=== PATIENT | male | born 1965 | race Caucasian/White ===

== ENCOUNTER 2018-03-16 15:13 | Inpatient (IN) | payer BC, OTHER ==
[~2018-03-16] VITALS: Ht 172.7 cm; Wt 74.8 kg
[2018-03-16] MEDS ORDERED: LOPERAMIDE HCL 2 MG CAPSULE PO PRN ×2 (20:30)
[2018-03-16] MEDS ORDERED: MIRALAX 17 GM POWD.PACK PO PRN (20:30)
[2018-03-16] MEDS ORDERED: ONDANSETRON ODT 4 MG TAB.RAPDIS SL PRN (20:30)
[2018-03-16] MEDS ORDERED: THIAMINE HCL 200 MG/2 ML VIAL IM ONE (20:30)
[2018-03-16] MEDS ORDERED: BUPRENORPHINE HCL 2 MG TAB.SUBL SL PRN (20:30)
[2018-03-16] MEDS ORDERED: diphenhydrAMINE 50 MG CAPSULE PO PRN (20:30)
[2018-03-16] MEDS ORDERED: DIAZEPAM 5 MG TABLET PO PRN (20:30)
[2018-03-16] MEDS ORDERED: MAGNESIUM HYDROXIDE 30 ML LIQUID UDC PO PRN (20:30)
[2018-03-16] MEDS ORDERED: DIAZEPAM 10 MG TABLET PO PRN ×2 (20:30)
[2018-03-16] MEDS ORDERED: LORAZEPAM 2 MG/1 ML VIAL IM PRN (20:30)
[2018-03-16] MEDS ORDERED: ACETAMINOPHEN 325 MG TABLET PO PRN (20:30)
[2018-03-16] MEDS ORDERED: ONDANSETRON 4 MG/2 ML VIAL IM PRN (20:30)
[2018-03-16] MEDS ORDERED: HYDROXYZINE PAMOATE 25 MG CAPSULE PO PRN (20:30)
[2018-03-16] MEDS ORDERED: MAG HYDROX/AL HYDROX/SIMETH 30 ML LIQUID UDC PO PRN (20:30)
[2018-03-16] MEDS ORDERED: DIAZEPAM 10 MG TABLET PO SCH (21:00)
[2018-03-16] MEDS ORDERED: BUPRENORPHINE HCL 2 MG TAB.SUBL SL SCH (21:00)
[2018-03-16 21:06] LABS: *AMPHETAMINE, URINE NEGATIVE (NEGATIVE); *BARBITURATE, URINE NEGATIVE (NEGATIVE); *CANNABINOID, URINE NEGATIVE (NEGATIVE); *COCCAINE, URINE POSITIVE (NEGATIVE); *OPIATE, URINE POSITIVE (NEGATIVE); *PHENCYCLIDINE SCREEN,URINE NEGATIVE (NEGATIVE)
[2018-03-16] MEDS ORDERED: FURO40TA5 PO (21:09)
[2018-03-16] MEDS ORDERED: ASPI81TA31 PO (21:09)
[2018-03-16] MEDS ORDERED: VERA240T97 PO (21:09)
[2018-03-16] MEDS ORDERED: METF500T6 PO (21:09)
[2018-03-16] MEDS ORDERED: INDO50CA14 PO (21:09)
[2018-03-16] MEDS: IBUPROFEN 400 MG TABLET PO PRN (21:43)
[2018-03-17] VITALS: BP 143/82
[2018-03-17] MEDS ORDERED: CLON0.2T PO (01:18)
[2018-03-17] MEDS ORDERED: VALS320T2 PO (01:20)
[2018-03-17] MEDS ORDERED: ALBU6.7H INH (01:21)
[2018-03-17] MEDS ORDERED: FAMO1TAB29 PO (01:38)
[2018-03-17] MEDS ORDERED: ASPIRIN (01:38)
[2018-03-17 04:00] VITALS: BP 149/100
[2018-03-17] MEDS: IBUPROFEN 400 MG TABLET PO PRN (04:15)
[2018-03-17] MEDS: CLONIDINE HCL 0.1 MG TABLET PO PRN (04:15)
[2018-03-17] MEDS: METHOCARBAMOL 750 MG TABLET PO PRN ×2 (04:15→12:38)
[2018-03-17 04:22] LABS: EOSINOPHILS # (AUTO) 0.2 K/uL (0.0-0.7); EOSINOPHILS % (AUTO) 4.8 % (0.0-7.0); HEMATOCRIT 41.1 % (36.7-47.1); HEMOGLOBIN 13.7 g/dL (12.5-16.3); LYMPHOCYTES # (AUTO) 1.9 K/uL (20.0-40.0); LYMPHOCYTES % (AUTO) 45.2 % (20.5-51.5); MEAN CORPUSCULAR HEMOGLOBIN 29.5 uug (23.8-33.4); MEAN CORPUSCULAR HGB CONC 33 g/dL (32.5-36.3); MEAN CORPUSCULAR VOLUME 88.2 fL (73.0-96.2); MONOCYTES # (AUTO) 0.4 K/uL (2.0-10.0); MONOCYTES % (AUTO) 9.2 % (0.0-11.0); NEUTROPHILS # (AUTO) 1.6 K/uL (1.8-8.9); NEUTROPHILS % (AUTO) 39.8 % (38.5-71.5); PLATELET COUNT (AUTO) 194 K/uL (152-348); RED BLOOD CELL COUNT(AUTO) 4.66 MIL/uL (4.06-5.63); WHITE BLOOD COUNT (AUTO) 4.1 K/uL (3.6-10.2)
[2018-03-17 04:34] LABS: ALANINE AMINOTRANSFERASE 32 U/L (16-63); ALKALINE PHOSPHATASE 94 U/L (50-136); AMYLASE 122 U/L (25-115); ASPARTATE AMINOTRANSFERASE 23 U/L (15-37); BILIRUBIN,TOTAL 0.4 mg/dL (0.2-1.0); CARBON DIOXIDE 23 mmol/L (21-32); CHLORIDE 103 mmol/L (98-107); CREATININE 1.1 mg/dL (0.6-1.3); GLUCOSE 91 mg/dL (74-106); LIPASE 218 U/L (73-393); POTASSIUM 3.8 mmol/L (3.5-5.1); TOTAL PROTEIN, SERUM 7.9 g/dL (6.4-8.2); UREA NITROGEN, BLOOD 13 mg/dL (7-18)
[2018-03-17 04:42] LABS: ETHANOL < 3 MG/DL (0-0)
[2018-03-17 06:04] LABS: THYROID STIMULATING HORMONE 0.645 mIU/mL (0.358-3.740)
[2018-03-17 08:00] VITALS: BP 124/73
[2018-03-17] MEDS: MULTIVITAMINS,THERAPEUTIC TABLET PO SCH (08:50)
[2018-03-17] MEDS: FOLIC ACID 1 MG TABLET PO SCH (08:50)
[2018-03-17] MEDS: THIAMINE HCL 100 MG TABLET PO SCH (08:50)
[2018-03-17] MEDS: BUPRENORPHINE HCL 2 MG TAB.SUBL SL SCH ×4 (08:51→21:31)
[2018-03-17] MEDS: DIAZEPAM 10 MG TABLET PO SCH ×4 (08:53→21:31)
[2018-03-17] MEDS ORDERED: TUBERCULIN,PURIF.PROT.DERIV. 5 TU/0.1 ML TEST ID ONE (09:00)
[2018-03-17 12:22] VITALS: BP 129/79
[2018-03-17] MEDS: FUROSEMIDE 40 MG TABLET PO SCH (12:36)
[2018-03-17] MEDS: LOSARTAN POTASSIUM 50 MG TABLET PO SCH (12:37)
[2018-03-17] MEDS: ASPIRIN 81 MG TAB.CHEW PO SCH (12:37)
[2018-03-17] MEDS: VERAPAMIL SR 240 MG TABLET.SA PO SCH (12:37)
[2018-03-17] MEDS: METFORMIN HCL 500 MG TABLET PO SCH (12:37)
[2018-03-17] MEDS ORDERED: ALBUTEROL SULFATE 8 GM HFA.AER.AD INH SCH (13:00)
[2018-03-17] MEDS ORDERED: ALBUTEROL SULFATE 2.5 MG/3 ML NEBU NEB PRN (13:30)
[2018-03-17] MEDS ORDERED: ALBUTEROL SULFATE 2.5 MG/3 ML NEBU NEB SCH (13:30)
[2018-03-17] MEDS: KETOROLAC TROMETHAMINE 30 MG INJ IM PRN ×2 (15:26→21:33)
[2018-03-17 16:30] VITALS: BP 96/60
[2018-03-17 20:00] VITALS: BP 111/71
[2018-03-17] MEDS ORDERED: BUPRENORPHINE HCL 2 MG TAB.SUBL SL SCH (21:00)
[2018-03-17] MEDS ORDERED: DIAZEPAM 10 MG TABLET PO SCH (21:00)
[2018-03-17] MEDS: DICYCLOMINE HCL 20 MG TABLET PO PRN (21:31)
[2018-03-18] VITALS: BP 110/72
[2018-03-18 04:00] VITALS: BP 105/69
[2018-03-18] MEDS ORDERED: KETOROLAC TROMETHAMINE 30 MG INJ ONE (05:46)
[2018-03-18] MEDS: KETOROLAC TROMETHAMINE 30 MG INJ IM PRN ×2 (05:47→14:17)
[2018-03-18 08:00] VITALS: BP 96/62
[2018-03-18 08:06] LABS: HEPATITIS B SURFACE AG Negative (Negative)
[2018-03-18] MEDS: FUROSEMIDE 40 MG TABLET PO SCH (08:42)
[2018-03-18] MEDS: VERAPAMIL SR 240 MG TABLET.SA PO SCH (08:42)
[2018-03-18] MEDS: DIAZEPAM 10 MG TABLET PO SCH ×3 (08:43→20:59)
[2018-03-18] MEDS: FOLIC ACID 1 MG TABLET PO SCH (08:43)
[2018-03-18] MEDS: ASPIRIN 81 MG TAB.CHEW PO SCH (08:43)
[2018-03-18] MEDS: MULTIVITAMINS,THERAPEUTIC TABLET PO SCH (08:43)
[2018-03-18] MEDS: METFORMIN HCL 500 MG TABLET PO SCH (08:43)
[2018-03-18] MEDS: BUPRENORPHINE HCL 2 MG TAB.SUBL SL SCH ×3 (08:43→20:59)
[2018-03-18] MEDS: THIAMINE HCL 100 MG TABLET PO SCH (08:43)
[2018-03-18 08:44] LABS: BASOPHILS % (AUTO) 1.1 % (0.0-2.0); EOSINOPHILS # (AUTO) 0.2 K/uL (0.0-0.7); EOSINOPHILS % (AUTO) 5.5 % (0.0-7.0); HEMATOCRIT 39.7 % (36.7-47.1); LYMPHOCYTES # (AUTO) 1.9 K/uL (20.0-40.0); LYMPHOCYTES % (AUTO) 46.8 % (20.5-51.5); MEAN CORPUSCULAR HEMOGLOBIN 30.2 uug (23.8-33.4); MEAN CORPUSCULAR HGB CONC 33 g/dL (32.5-36.3); MEAN CORPUSCULAR VOLUME 92.1 fL (73.0-96.2); MONOCYTES # (AUTO) 0.4 K/uL (2.0-10.0); MONOCYTES % (AUTO) 9.5 % (0.0-11.0); NEUTROPHILS # (AUTO) 1.5 K/uL (1.8-8.9); NEUTROPHILS % (AUTO) 37.1 % (38.5-71.5); PLATELET COUNT (AUTO) 148 K/uL (152-348); RED BLOOD CELL COUNT(AUTO) 4.32 MIL/uL (4.06-5.63)
[2018-03-18 09:00] LABS: BILIRUBIN,TOTAL 0.2 mg/dL (0.2-1.0); CREATININE 1.3 mg/dL (0.6-1.3); MAGNESIUM 1.9 mg/dL (1.8-2.4); POTASSIUM 3.8 mmol/L (3.5-5.1); TOTAL PROTEIN, SERUM 6.9 g/dL (6.4-8.2)
[2018-03-18] MEDS: LOSARTAN POTASSIUM 50 MG TABLET PO SCH (10:45)
[2018-03-18 12:28] VITALS: BP 128/85
[2018-03-18 16:30] VITALS: BP 128/85
[2018-03-18 20:00] VITALS: BP 138/91
[2018-03-18] MEDS: METHOCARBAMOL 750 MG TABLET PO PRN (20:59)
[2018-03-18] MEDS: DICYCLOMINE HCL 20 MG TABLET PO PRN (20:59)
[2018-03-18] MEDS ORDERED: BUPRENORPHINE HCL 2 MG TAB.SUBL SL SCH (21:00)
[2018-03-18] MEDS ORDERED: DIAZEPAM 5 MG TABLET PO SCH (21:00)
[2018-03-19] VITALS: BP_SYST 128; BP_SYST 131; BP_DIAS 78; BP_DIAS 86
[2018-03-19 04:00] VITALS: BP 124/82
[2018-03-19 07:29] LABS: BILIRUBIN,TOTAL 0.2 mg/dL (0.2-1.0); CREATININE 1.1 mg/dL (0.6-1.3)
[2018-03-19 08:28] VITALS: BP 136/88
[2018-03-19] MEDS: VERAPAMIL SR 240 MG TABLET.SA PO SCH ×3 (09:00→21:38)
[2018-03-19] MEDS ORDERED: BUPRENORPHINE HCL 2 MG TAB.SUBL SL SCH ×3 (09:00→21:00)
[2018-03-19] MEDS: ASPIRIN 81 MG TAB.CHEW PO SCH (09:39)
[2018-03-19] MEDS: FOLIC ACID 1 MG TABLET PO SCH (09:39)
[2018-03-19] MEDS: DIAZEPAM 5 MG TABLET PO SCH ×4 (09:39→21:37)
[2018-03-19] MEDS: MULTIVITAMINS,THERAPEUTIC TABLET PO SCH (09:39)
[2018-03-19] MEDS: THIAMINE HCL 100 MG TABLET PO SCH (09:39)
[2018-03-19] MEDS: FUROSEMIDE 40 MG TABLET PO SCH (09:39)
[2018-03-19] MEDS: METFORMIN HCL 500 MG TABLET PO SCH (09:39)
[2018-03-19] MEDS: LOSARTAN POTASSIUM 50 MG TABLET PO SCH (10:30)
[2018-03-19 12:30] VITALS: BP 144/89
[2018-03-19] MEDS: IBUPROFEN 400 MG TABLET PO PRN (12:32)
[2018-03-19] MEDS: METHOCARBAMOL 750 MG TABLET PO PRN ×2 (12:32→21:36)
[2018-03-19] MEDS: BUPRENORPHINE HCL 2 MG TAB.SUBL SL SCH ×2 (15:08→21:37)
[2018-03-19 16:45] VITALS: BP 146/99
[2018-03-19] MEDS: INDOMETHACIN 25 MG CAPSULE PO SCH ×2 (18:52→21:38)
[2018-03-19 20:00] VITALS: BP 140/96
[2018-03-19] MEDS ORDERED: DIAZEPAM 5 MG TABLET PO SCH (21:00)
[2018-03-20] VITALS (7 sets, daily range): BP systolic 102–162; BP diastolic 68–101
[2018-03-20] MEDS: BUPRENORPHINE HCL 2 MG TAB.SUBL SL SCH ×3 (09:16→21:55)
[2018-03-20] MEDS: FUROSEMIDE 40 MG TABLET PO SCH (09:16)
[2018-03-20] MEDS: INDOMETHACIN 25 MG CAPSULE PO SCH ×3 (09:16→21:54)
[2018-03-20] MEDS: METFORMIN HCL 500 MG TABLET PO SCH (09:17)
[2018-03-20] MEDS: ASPIRIN 81 MG TAB.CHEW PO SCH (09:17)
[2018-03-20] MEDS: MULTIVITAMINS,THERAPEUTIC TABLET PO SCH (09:17)
[2018-03-20] MEDS: DIAZEPAM 5 MG TABLET PO SCH ×3 (09:17→21:55)
[2018-03-20] MEDS: FOLIC ACID 1 MG TABLET PO SCH (09:17)
[2018-03-20] MEDS: THIAMINE HCL 100 MG TABLET PO SCH (09:17)
[2018-03-20] MEDS: LOSARTAN POTASSIUM 50 MG TABLET PO SCH (09:38)
[2018-03-20] MEDS ORDERED: DIAZEPAM 5 MG TABLET PO SCH (21:00)
[2018-03-20] MEDS: VERAPAMIL SR 240 MG TABLET.SA PO SCH (21:54)
[2018-03-20] MEDS: METHOCARBAMOL 750 MG TABLET PO PRN (21:55)
[2018-03-21 08:00] VITALS: BP 127/83
[2018-03-21] MEDS: METFORMIN HCL 500 MG TABLET PO SCH (08:47)
[2018-03-21] MEDS: FOLIC ACID 1 MG TABLET PO SCH (08:47)
[2018-03-21] MEDS: MULTIVITAMINS,THERAPEUTIC TABLET PO SCH (08:47)
[2018-03-21] MEDS: DIAZEPAM 5 MG TABLET PO SCH ×2 (08:47→21:36)
[2018-03-21] MEDS: FUROSEMIDE 40 MG TABLET PO SCH (08:48)
[2018-03-21] MEDS: THIAMINE HCL 100 MG TABLET PO SCH (08:48)
[2018-03-21] MEDS: INDOMETHACIN 25 MG CAPSULE PO SCH ×3 (08:48→21:37)
[2018-03-21] MEDS: LOSARTAN POTASSIUM 50 MG TABLET PO SCH (08:48)
[2018-03-21] MEDS ORDERED: BUPRENORPHINE HCL 2 MG TAB.SUBL SL SCH ×2 (09:00)
[2018-03-21] MEDS: ASPIRIN 81 MG TAB.CHEW PO SCH (09:08)
[2018-03-21 12:03] VITALS: BP 141/89
[2018-03-21 16:00] VITALS: BP 149/91
[2018-03-21] MEDS: CLONIDINE HCL 0.1 MG TABLET PO PRN (19:33)
[2018-03-21 20:23] VITALS: BP 139/97
[2018-03-21] MEDS: VERAPAMIL SR 240 MG TABLET.SA PO SCH (21:37)
[2018-03-21] MEDS: METHOCARBAMOL 750 MG TABLET PO PRN (21:41)
[2018-03-22 08:00] VITALS: BP 93/72
[2018-03-22] MEDS: FOLIC ACID 1 MG TABLET PO SCH (08:41)
[2018-03-22] MEDS: ASPIRIN 81 MG TAB.CHEW PO SCH (08:41)
[2018-03-22] MEDS: THIAMINE HCL 100 MG TABLET PO SCH (08:41)
[2018-03-22] MEDS: MULTIVITAMINS,THERAPEUTIC TABLET PO SCH (08:41)
[2018-03-22] MEDS: INDOMETHACIN 25 MG CAPSULE PO SCH ×3 (08:42→21:25)
[2018-03-22] MEDS: LOSARTAN POTASSIUM 50 MG TABLET PO SCH (08:42)
[2018-03-22] MEDS: FUROSEMIDE 40 MG TABLET PO SCH (08:42)
[2018-03-22] MEDS: METFORMIN HCL 500 MG TABLET PO SCH (09:29)
[2018-03-22 12:00] VITALS: BP 147/96
[2018-03-22] MEDS ORDERED: METH-406 PO (14:02)
[2018-03-22] MEDS ORDERED: LOSA50TA3 PO (14:58)
[2018-03-22 16:00] VITALS: BP 150/94
[2018-03-22 20:15] VITALS: BP 121/77
[2018-03-22] MEDS: VERAPAMIL SR 240 MG TABLET.SA PO SCH (21:25)
[2018-03-23 08:00] VITALS: BP 154/94
[2018-03-23] MEDS: ASPIRIN 81 MG TAB.CHEW PO SCH (08:13)
[2018-03-23] MEDS: FOLIC ACID 1 MG TABLET PO SCH (08:13)
[2018-03-23] MEDS: FUROSEMIDE 40 MG TABLET PO SCH (08:13)
[2018-03-23] MEDS: MULTIVITAMINS,THERAPEUTIC TABLET PO SCH (08:13)
[2018-03-23] MEDS: THIAMINE HCL 100 MG TABLET PO SCH (08:13)
[2018-03-23 08:14] VITALS: BP 154/94
[2018-03-23] MEDS: INDOMETHACIN 25 MG CAPSULE PO SCH (08:14)
[2018-03-23] MEDS: LOSARTAN POTASSIUM 50 MG TABLET PO SCH (08:14)
[2018-03-23] MEDS: METFORMIN HCL 500 MG TABLET PO SCH (08:29)
== END 2018-03-23 09:37 | disposition home or self-care (01) | DRG 895 ==
LOC: SRC 18:45
PROVIDERS: ADMIT Family Medicine Addiction Medicine; ATTEND Family Medicine Addiction Medicine
PROC: HZ2ZZZZ Detoxification Services for Substance Abuse Treatment (ICD-10-PCS; principal; 2018-03-16)
PROC: HZ31ZZZ Individual Counseling for Substance Abuse Treatment, Behavioral (ICD-10-PCS; 2018-03-17)
PROC: HZ41ZZZ Group Counseling for Substance Abuse Treatment, Behavioral (ICD-10-PCS; 2018-03-18)
DX: F10.230 Alcohol dependence with withdrawal, uncomplicated (principal); F11.23 Opioid dependence with withdrawal; Y90.0 Blood alcohol level of less than 20 mg/100 ml; Z90.49 Acquired absence of other specified parts of digestive tract; Z81.1 Family history of alcohol abuse and dependence; F17.210 Nicotine dependence, cigarettes, uncomplicated; F14.23 Cocaine dependence with withdrawal; E11.9 Type 2 diabetes mellitus without complications; Z79.82 Long term (current) use of aspirin; Z79.84 Long term (current) use of oral hypoglycemic drugs; Z79.899 Other long term (current) drug therapy; B18.2 Chronic viral hepatitis C; J44.9 Chronic obstructive pulmonary disease, unspecified; I10 Essential (primary) hypertension; G89.29 Other chronic pain; M54.5 Low back pain; R74.8 Abnormal levels of other serum enzymes; F41.9 Anxiety disorder, unspecified; F32.9 Major depressive disorder, single episode, unspecified; Z63.9 Problem related to primary support group, unspecified
CPT/HCPCS: 36415; 70030-TC; 71045; 80307; 80353; 80361; 83690; 83735; 84443; 85025; 86580; 86592; 86705; 86803; 87340; 87806; G0480; J1885; J3411; Q0162; Q0163

== ENCOUNTER 2018-05-20 18:04 | Inpatient (IN) | payer BC, OTHER ==
[~2018-05-20] VITALS: Ht 172.7 cm; Wt 70.8 kg
[~2018-05-20 18:04] MED LIST: ALBU6.7H INH; ASPI81TA31 PO; ASPIRIN; CLON0.2T PO; FAMO1TAB29 PO; FURO40TA5 PO; INDO50CA14 PO; LOSA50TA3 PO; METF-440 PO; METH-406 PO; VERA240T97 PO
[2018-05-21 12:00] VITALS: BP 110/78
[2018-05-21] MEDS ORDERED: 5 DAY TAPER BUPRENORPHINE -SERENITY PROTOCOL SL PRN (14:30)
[2018-05-21] MEDS ORDERED: DIAZEPAM 5 MG TABLET PO PRN (14:30)
[2018-05-21] MEDS ORDERED: IBUPROFEN 600 MG TABLET PO PRN (14:30)
[2018-05-21] MEDS ORDERED: DICYCLOMINE HCL 20 MG TABLET PO PRN (14:30)
[2018-05-21] MEDS ORDERED: HYDROXYZINE PAMOATE 25 MG CAPSULE PO PRN (14:30)
[2018-05-21] MEDS ORDERED: 5 DAY TAPER VALIUM-SERENITY PROTOCOL PO PRN (14:30)
[2018-05-21] MEDS ORDERED: THIAMINE HCL 200 MG/2 ML VIAL IM ONE (14:30)
[2018-05-21] MEDS ORDERED: MAGNESIUM HYDROXIDE 30 ML LIQUID UDC PO PRN (14:30)
[2018-05-21] MEDS ORDERED: MAG HYDROX/AL HYDROX/SIMETH 30 ML LIQUID UDC PO PRN (14:30)
[2018-05-21] MEDS ORDERED: LOPERAMIDE HCL 2 MG CAPSULE PO PRN ×2 (14:30)
[2018-05-21] MEDS ORDERED: CLONIDINE HCL 0.1 MG TABLET PO PRN (14:30)
[2018-05-21] MEDS ORDERED: DIAZEPAM 10 MG TABLET PO PRN ×2 (14:30)
[2018-05-21] MEDS ORDERED: ONDANSETRON 4 MG/2 ML VIAL IM PRN (14:30)
[2018-05-21] MEDS ORDERED: ONDANSETRON ODT 4 MG TAB.RAPDIS SL PRN (14:30)
[2018-05-21] MEDS ORDERED: LORAZEPAM 2 MG/1 ML VIAL IM PRN (14:30)
[2018-05-21] MEDS ORDERED: DEXTROSE 50% 50 ML DISP.SYRIN IV PRN (15:30)
[2018-05-21 15:44] LABS: BASOPHILS # (AUTO) 0.1 K/uL (0.0-8.0); EOSINOPHILS # (AUTO) 0.2 K/uL (0.0-0.7); EOSINOPHILS % (AUTO) 4.4 % (0.0-7.0); HEMATOCRIT 35.9 % (36.7-47.1); HEMOGLOBIN 12.2 g/dL (12.5-16.3); LYMPHOCYTES # (AUTO) 1.7 K/uL (20.0-40.0); LYMPHOCYTES % (AUTO) 32.1 % (20.5-51.5); MEAN CORPUSCULAR HGB CONC 34 g/dL (32.5-36.3); MEAN CORPUSCULAR VOLUME 91.6 fL (73.0-96.2); MONOCYTES # (AUTO) 0.8 K/uL (2.0-10.0); MONOCYTES % (AUTO) 14.3 % (0.0-11.0); NEUTROPHILS # (AUTO) 2.6 K/uL (1.8-8.9); NEUTROPHILS % (AUTO) 48.2 % (38.5-71.5); PLATELET COUNT (AUTO) 238 K/uL (152-348); RED BLOOD CELL COUNT(AUTO) 3.93 MIL/uL (4.06-5.63); WHITE BLOOD COUNT (AUTO) 5.3 K/uL (3.6-10.2)
[2018-05-21 15:53] LABS: ETHANOL < 3 MG/DL (0-0)
[2018-05-21 15:57] LABS: ALANINE AMINOTRANSFERASE 25 U/L (16-63); ALKALINE PHOSPHATASE 80 U/L (50-136); AMYLASE 149 U/L (25-115); ASPARTATE AMINOTRANSFERASE 16 U/L (15-37); BILIRUBIN,TOTAL 0.2 mg/dL (0.2-1.0); CARBON DIOXIDE 28 mmol/L (21-32); CHLORIDE 98 mmol/L (98-107); CREATININE 1.9 mg/dL (0.6-1.3); GLUCOSE 120 mg/dL (74-106); LIPASE 279 U/L (73-393); MAGNESIUM 2.1 mg/dL (1.8-2.4); POTASSIUM 3.8 mmol/L (3.5-5.1); TOTAL PROTEIN, SERUM 6.7 g/dL (6.4-8.2); UREA NITROGEN, BLOOD 23 mg/dL (7-18)
[2018-05-21 16:28] VITALS: BP 101/66
[2018-05-21] MEDS: DIAZEPAM 10 MG TABLET PO SCH ×3 (16:29→21:14)
[2018-05-21] MEDS: BLOOD SUGAR DIAGNOSTIC 1 EACH STRIP VI SCH ×2 (16:30→21:15)
[2018-05-21] MEDS: BUPRENORPHINE HCL 2 MG TAB.SUBL SL SCH ×2 (17:03→21:14)
[2018-05-21 20:49] VITALS: BP 103/67
[2018-05-21] MEDS: INDOMETHACIN 25 MG CAPSULE PO SCH (21:13)
[2018-05-21] MEDS ORDERED: PATIENT MAY USE OWN MED- MD OK PO SCH ×2 (21:30)
[2018-05-21] MEDS ORDERED: VERAPAMIL SR 120 MG TABLET.SA PO SCH (22:00)
[2018-05-22 00:25] VITALS: BP 109/67
[2018-05-22 04:25] VITALS: BP 104/71
[2018-05-22] MEDS: FOLIC ACID 1 MG TABLET PO SCH (08:09)
[2018-05-22] MEDS: BLOOD SUGAR DIAGNOSTIC 1 EACH STRIP VI SCH ×4 (08:09→20:19)
[2018-05-22] MEDS: ASPIRIN 81 MG TAB.CHEW PO SCH (08:09)
[2018-05-22] MEDS: DIAZEPAM 10 MG TABLET PO SCH ×3 (08:09→20:19)
[2018-05-22] MEDS: THIAMINE HCL 100 MG TABLET PO SCH (08:09)
[2018-05-22] MEDS: MULTIVITAMINS,THERAPEUTIC TABLET PO SCH (08:10)
[2018-05-22] MEDS: LOSARTAN POTASSIUM 50 MG TABLET PO SCH (08:10)
[2018-05-22] MEDS: BUPRENORPHINE HCL 2 MG TAB.SUBL SL SCH ×3 (08:10→20:19)
[2018-05-22] MEDS: INDOMETHACIN 25 MG CAPSULE PO SCH ×3 (08:11→16:46)
[2018-05-22 08:44] VITALS: BP 129/83
[2018-05-22] MEDS: FUROSEMIDE 40 MG TABLET PO SCH (08:56)
[2018-05-22] MEDS ORDERED: TUBERCULIN,PURIF.PROT.DERIV. 5 TU/0.1 ML TEST ID ONE (09:00)
[2018-05-22] MEDS ORDERED: METFORMIN HCL 500 MG TABLET PO SCH (09:00)
[2018-05-22 09:58] LABS: *AMPHETAMINE, URINE NEGATIVE (NEGATIVE); *BARBITURATE, URINE NEGATIVE (NEGATIVE); *CANNABINOID, URINE NEGATIVE (NEGATIVE); *COCCAINE, URINE POSITIVE (NEGATIVE); *OPIATE, URINE POSITIVE (NEGATIVE); *PHENCYCLIDINE SCREEN,URINE NEGATIVE (NEGATIVE)
[2018-05-22 12:05] VITALS: BP 127/83
[2018-05-22 13:12] LABS: CREATININE 1.3 mg/dL (0.6-1.3); POTASSIUM 3.8 mmol/L (3.5-5.1)
[2018-05-22] MEDS ORDERED: CLONIDINE HCL 0.2 MG TABLET PO PRN (14:00)
[2018-05-22] MEDS: METHOCARBAMOL 750 MG TABLET PO PRN ×2 (14:32→22:32)
[2018-05-22] MEDS: METFORMIN HCL 500 MG TABLET PO SCH (14:32)
[2018-05-22 16:40] VITALS: BP 128/89
[2018-05-22 20:04] VITALS: BP 159/96
[2018-05-22] MEDS: VERAPAMIL SR 120 MG TABLET.SA PO SCH (20:18)
[2018-05-22] MEDS: CLONIDINE HCL 0.2 MG TABLET PO SCH (20:19)
[2018-05-23 00:30] VITALS: BP 119/81
[2018-05-23] MEDS: BLOOD SUGAR DIAGNOSTIC 1 EACH STRIP VI SCH ×4 (07:56→21:00)
[2018-05-23 08:08] VITALS: BP 123/70
[2018-05-23] MEDS: FUROSEMIDE 40 MG TABLET PO SCH (08:22)
[2018-05-23] MEDS: MULTIVITAMINS,THERAPEUTIC TABLET PO SCH (08:22)
[2018-05-23] MEDS: LOSARTAN POTASSIUM 50 MG TABLET PO SCH (08:22)
[2018-05-23] MEDS: DIAZEPAM 5 MG TABLET PO SCH ×4 (08:22→21:11)
[2018-05-23] MEDS: METFORMIN HCL 500 MG TABLET PO SCH (08:22)
[2018-05-23] MEDS: FOLIC ACID 1 MG TABLET PO SCH (08:22)
[2018-05-23] MEDS: CLONIDINE HCL 0.2 MG TABLET PO SCH ×2 (08:23→21:11)
[2018-05-23] MEDS: THIAMINE HCL 100 MG TABLET PO SCH (08:23)
[2018-05-23] MEDS: SERTRALINE HCL 50 MG TABLET PO SCH (08:23)
[2018-05-23] MEDS: INDOMETHACIN 25 MG CAPSULE PO SCH ×3 (08:23→16:26)
[2018-05-23] MEDS: ASPIRIN 81 MG TAB.CHEW PO SCH (08:23)
[2018-05-23] MEDS ORDERED: BUPRENORPHINE HCL 2 MG TAB.SUBL SL SCH (09:00)
[2018-05-23] MEDS: INSULIN REGULAR, HUMAN 300 UNIT/3 ML VIAL SQ PRN ×3 (11:59→21:14)
[2018-05-23 12:00] VITALS: BP 115/67
[2018-05-23] MEDS: METHOCARBAMOL 750 MG TABLET PO PRN ×2 (12:31→21:29)
[2018-05-23] MEDS: BUPRENORPHINE HCL 2 MG TAB.SUBL SL SCH ×2 (15:05→21:12)
[2018-05-23 16:00] VITALS: BP 127/86
[2018-05-23 20:00] VITALS: BP 117/81
[2018-05-23] MEDS: VERAPAMIL SR 120 MG TABLET.SA PO SCH (21:12)
[2018-05-24] VITALS: BP 122/80
[2018-05-24 04:00] VITALS: BP 114/72
[2018-05-24] MEDS: BLOOD SUGAR DIAGNOSTIC 1 EACH STRIP VI SCH ×4 (07:38→20:32)
[2018-05-24 07:47] LABS: BASOPHILS # (AUTO) 0.1 K/uL (0.0-8.0); EOSINOPHILS # (AUTO) 0.2 K/uL (0.0-0.7); EOSINOPHILS % (AUTO) 5.7 % (0.0-7.0); HEMATOCRIT 36.1 % (36.7-47.1); HEMOGLOBIN 12.3 g/dL (12.5-16.3); LYMPHOCYTES # (AUTO) 1.6 K/uL (20.0-40.0); LYMPHOCYTES % (AUTO) 50.6 % (20.5-51.5); MEAN CORPUSCULAR HEMOGLOBIN 31.1 uug (23.8-33.4); MEAN CORPUSCULAR HGB CONC 34 g/dL (32.5-36.3); MEAN CORPUSCULAR VOLUME 91.7 fL (73.0-96.2); MONOCYTES # (AUTO) 0.3 K/uL (2.0-10.0); MONOCYTES % (AUTO) 10.1 % (0.0-11.0); NEUTROPHILS % (AUTO) 31.6 % (38.5-71.5); PLATELET COUNT (AUTO) 218 K/uL (152-348); RED BLOOD CELL COUNT(AUTO) 3.94 MIL/uL (4.06-5.63); WHITE BLOOD COUNT (AUTO) 3.2 K/uL (3.6-10.2)
[2018-05-24 08:06] LABS: BILIRUBIN,TOTAL 0.2 mg/dL (0.2-1.0); CREATININE 1.2 mg/dL (0.6-1.3); POTASSIUM 4.1 mmol/L (3.5-5.1); TOTAL PROTEIN, SERUM 6.7 g/dL (6.4-8.2)
[2018-05-24 08:09] VITALS: BP 115/80
[2018-05-24] MEDS: METFORMIN HCL 500 MG TABLET PO SCH (08:28)
[2018-05-24] MEDS: MULTIVITAMINS,THERAPEUTIC TABLET PO SCH (08:29)
[2018-05-24] MEDS: THIAMINE HCL 100 MG TABLET PO SCH (08:29)
[2018-05-24] MEDS: FOLIC ACID 1 MG TABLET PO SCH (08:29)
[2018-05-24] MEDS: SERTRALINE HCL 50 MG TABLET PO SCH (08:29)
[2018-05-24] MEDS: INDOMETHACIN 25 MG CAPSULE PO SCH ×3 (08:29→16:46)
[2018-05-24] MEDS: LOSARTAN POTASSIUM 50 MG TABLET PO SCH (08:29)
[2018-05-24] MEDS: DIAZEPAM 5 MG TABLET PO SCH ×3 (08:29→20:30)
[2018-05-24] MEDS: CLONIDINE HCL 0.2 MG TABLET PO SCH ×2 (08:30→20:30)
[2018-05-24] MEDS: FUROSEMIDE 40 MG TABLET PO SCH (08:30)
[2018-05-24] MEDS: BUPRENORPHINE HCL 2 MG TAB.SUBL SL SCH ×3 (08:30→20:30)
[2018-05-24] MEDS: ASPIRIN 81 MG TAB.CHEW PO SCH (08:30)
[2018-05-24] MEDS: INSULIN REGULAR, HUMAN 300 UNIT/3 ML VIAL SQ PRN ×3 (11:42→20:32)
[2018-05-24 12:08] VITALS: BP 125/80
[2018-05-24 16:40] VITALS: BP 137/87
[2018-05-24 20:00] VITALS: BP 165/106
[2018-05-24] MEDS: METHOCARBAMOL 750 MG TABLET PO PRN (20:29)
[2018-05-24] MEDS: VERAPAMIL SR 120 MG TABLET.SA PO SCH (20:30)
[2018-05-25] VITALS: BP 123/78
[2018-05-25 04:00] VITALS: BP 111/65
[2018-05-25 08:00] VITALS: BP 110/65
[2018-05-25] MEDS: SERTRALINE HCL 50 MG TABLET PO SCH (08:23)
[2018-05-25] MEDS: BLOOD SUGAR DIAGNOSTIC 1 EACH STRIP VI SCH ×4 (08:23→21:00)
[2018-05-25] MEDS: LOSARTAN POTASSIUM 50 MG TABLET PO SCH (08:24)
[2018-05-25] MEDS: FOLIC ACID 1 MG TABLET PO SCH (08:24)
[2018-05-25] MEDS: MULTIVITAMINS,THERAPEUTIC TABLET PO SCH (08:25)
[2018-05-25] MEDS: CLONIDINE HCL 0.2 MG TABLET PO SCH ×2 (08:25→20:32)
[2018-05-25] MEDS: DIAZEPAM 5 MG TABLET PO SCH ×2 (08:25→20:32)
[2018-05-25] MEDS: ASPIRIN 81 MG TAB.CHEW PO SCH (08:25)
[2018-05-25] MEDS: THIAMINE HCL 100 MG TABLET PO SCH (08:25)
[2018-05-25] MEDS: FUROSEMIDE 40 MG TABLET PO SCH (08:26)
[2018-05-25] MEDS: INDOMETHACIN 25 MG CAPSULE PO SCH ×3 (08:26→17:56)
[2018-05-25] MEDS: METFORMIN HCL 500 MG TABLET PO SCH (08:28)
[2018-05-25] MEDS ORDERED: BUPRENORPHINE HCL 2 MG TAB.SUBL SL SCH (09:00)
[2018-05-25 12:00] VITALS: BP 125/83
[2018-05-25] MEDS ORDERED: MAGNESIUM CITRATE 296 ML BOTTLE PO ONE (15:00)
[2018-05-25 16:00] VITALS: BP 142/91
[2018-05-25 20:00] VITALS: BP 159/100
[2018-05-25] MEDS: VERAPAMIL SR 120 MG TABLET.SA PO SCH (20:32)
[2018-05-26] VITALS: BP 124/76
[2018-05-26 04:00] VITALS: BP 115/68
[2018-05-26] MEDS: BLOOD SUGAR DIAGNOSTIC 1 EACH STRIP VI SCH ×4 (07:40→20:36)
[2018-05-26 08:00] VITALS: BP 115/65
[2018-05-26 08:16] LABS: BASOPHILS # (AUTO) 0.1 K/uL (0.0-8.0); BASOPHILS % (AUTO) 1.9 % (0.0-2.0); EOSINOPHILS # (AUTO) 0.2 K/uL (0.0-0.7); EOSINOPHILS % (AUTO) 6.5 % (0.0-7.0); HEMATOCRIT 35.3 % (36.7-47.1); HEMOGLOBIN 12.1 g/dL (12.5-16.3); LYMPHOCYTES # (AUTO) 1.5 K/uL (20.0-40.0); LYMPHOCYTES % (AUTO) 41.8 % (20.5-51.5); MEAN CORPUSCULAR HEMOGLOBIN 31.4 uug (23.8-33.4); MEAN CORPUSCULAR HGB CONC 34 g/dL (32.5-36.3); MEAN CORPUSCULAR VOLUME 91.8 fL (73.0-96.2); MONOCYTES # (AUTO) 0.4 K/uL (2.0-10.0); MONOCYTES % (AUTO) 10.9 % (0.0-11.0); NEUTROPHILS # (AUTO) 1.4 K/uL (1.8-8.9); NEUTROPHILS % (AUTO) 38.9 % (38.5-71.5); PLATELET COUNT (AUTO) 212 K/uL (152-348); RED BLOOD CELL COUNT(AUTO) 3.85 MIL/uL (4.06-5.63); WHITE BLOOD COUNT (AUTO) 3.6 K/uL (3.6-10.2)
[2018-05-26 08:34] LABS: IRON, SERUM 85 ug/dL (50-175)
[2018-05-26] MEDS: LOSARTAN POTASSIUM 50 MG TABLET PO SCH (08:49)
[2018-05-26] MEDS: ASPIRIN 81 MG TAB.CHEW PO SCH (08:49)
[2018-05-26] MEDS: MULTIVITAMINS,THERAPEUTIC TABLET PO SCH (08:49)
[2018-05-26] MEDS: FOLIC ACID 1 MG TABLET PO SCH (08:49)
[2018-05-26] MEDS: CLONIDINE HCL 0.2 MG TABLET PO SCH ×2 (08:49→20:33)
[2018-05-26] MEDS: THIAMINE HCL 100 MG TABLET PO SCH (08:49)
[2018-05-26] MEDS: METFORMIN HCL 500 MG TABLET PO SCH (08:49)
[2018-05-26] MEDS: SERTRALINE HCL 50 MG TABLET PO SCH (08:49)
[2018-05-26] MEDS: INDOMETHACIN 25 MG CAPSULE PO SCH ×3 (08:50→17:27)
[2018-05-26] MEDS: FUROSEMIDE 40 MG TABLET PO SCH (08:50)
[2018-05-26] MEDS ORDERED: DIAZEPAM 5 MG TABLET PO ONE (09:00)
[2018-05-26 12:00] VITALS: BP 125/84
[2018-05-26] MEDS ORDERED: LOSA100T15 PO (14:08)
[2018-05-26] MEDS ORDERED: METH-406 PO (14:08)
[2018-05-26 16:30] VITALS: BP 184/104
[2018-05-26] MEDS ORDERED: hydrALAZINE HCL 10 MG TABLET PO PRN (18:00)
[2018-05-26 20:00] VITALS: BP 166/100
[2018-05-26] MEDS: VERAPAMIL SR 120 MG TABLET.SA PO SCH (20:34)
[2018-05-27] VITALS: BP 139/88
[2018-05-27 04:00] VITALS: BP 122/86
[2018-05-27] MEDS: BLOOD SUGAR DIAGNOSTIC 1 EACH STRIP VI SCH (07:59)
[2018-05-27 08:30] VITALS: BP 147/96
[2018-05-27] MEDS: FUROSEMIDE 40 MG TABLET PO SCH (08:50)
[2018-05-27] MEDS: FOLIC ACID 1 MG TABLET PO SCH (08:50)
[2018-05-27] MEDS: INDOMETHACIN 25 MG CAPSULE PO SCH (08:50)
[2018-05-27] MEDS: MULTIVITAMINS,THERAPEUTIC TABLET PO SCH (08:50)
[2018-05-27] MEDS: LOSARTAN POTASSIUM 50 MG TABLET PO SCH (08:50)
[2018-05-27] MEDS: SERTRALINE HCL 50 MG TABLET PO SCH (08:50)
[2018-05-27 08:51] VITALS: BP 147/96
[2018-05-27] MEDS: THIAMINE HCL 100 MG TABLET PO SCH (08:51)
[2018-05-27] MEDS: CLONIDINE HCL 0.2 MG TABLET PO SCH (08:51)
[2018-05-27] MEDS: ASPIRIN 81 MG TAB.CHEW PO SCH (08:51)
[2018-05-27] MEDS: METFORMIN HCL 500 MG TABLET PO SCH (08:51)
== END 2018-05-27 09:53 | disposition home or self-care (01) | DRG 895 ==
LOC: SRC 05-21 09:53
PROVIDERS: ADMIT Family Medicine Addiction Medicine; ATTEND Family Medicine Addiction Medicine
PROC: HZ2ZZZZ Detoxification Services for Substance Abuse Treatment (ICD-10-PCS; principal; 2018-05-21)
PROC: HZ31ZZZ Individual Counseling for Substance Abuse Treatment, Behavioral (ICD-10-PCS; 2018-05-23)
PROC: HZ41ZZZ Group Counseling for Substance Abuse Treatment, Behavioral (ICD-10-PCS; 2018-05-24)
DX: F10.230 Alcohol dependence with withdrawal, uncomplicated (principal); F32.2 Major depressive disorder, single episode, severe without psychotic features; E87.1 Hypo-osmolality and hyponatremia; F11.23 Opioid dependence with withdrawal; Y90.0 Blood alcohol level of less than 20 mg/100 ml; F41.9 Anxiety disorder, unspecified; J44.9 Chronic obstructive pulmonary disease, unspecified; I10 Essential (primary) hypertension; G89.29 Other chronic pain; F17.210 Nicotine dependence, cigarettes, uncomplicated; M54.5 Low back pain; E88.09 Other disorders of plasma-protein metabolism, not elsewhere classified; D64.9 Anemia, unspecified; B18.2 Chronic viral hepatitis C; D72.819 Decreased white blood cell count, unspecified; R74.8 Abnormal levels of other serum enzymes; M10.9 Gout, unspecified; F14.23 Cocaine dependence with withdrawal; E11.9 Type 2 diabetes mellitus without complications; Z90.49 Acquired absence of other specified parts of digestive tract; Z79.82 Long term (current) use of aspirin; Z79.899 Other long term (current) drug therapy; Z79.84 Long term (current) use of oral hypoglycemic drugs; Z63.9 Problem related to primary support group, unspecified
CPT/HCPCS: 36415; 70030-TC; 80307; 80346; 80353; 80361; 83550; 83690; 83735; 85025; 86592; 86705; 86803; 87340; 87806; G0480; J1815

== ENCOUNTER 2018-08-13 11:09 | Inpatient (IN) | payer BC, OTHER ==
[~2018-08-13] VITALS: Ht 172.7 cm; Wt 77.1 kg
[~2018-08-13 11:09] MED LIST changes: -ALBU6.7H INH; -ASPIRIN; -FAMO1TAB29 PO; +LOSA100T31 PO; -LOSA50TA3 PO; +VERA240C2 PO; -VERA240T97 PO
[2018-08-13] MEDS ORDERED: ONDANSETRON 4 MG/2 ML VIAL IM PRN (11:45)
[2018-08-13] MEDS ORDERED: THIAMINE HCL 200 MG/2 ML VIAL IM ONE (11:45)
[2018-08-13] MEDS ORDERED: MIRALAX 17 GM POWD.PACK PO PRN (11:45)
[2018-08-13] MEDS ORDERED: LORAZEPAM 2 MG/1 ML VIAL IM PRN (11:45)
[2018-08-13] MEDS ORDERED: ACETAMINOPHEN 325 MG TABLET PO PRN (11:45)
[2018-08-13] MEDS ORDERED: DIAZEPAM 10 MG TABLET PO PRN ×2 (11:45)
[2018-08-13] MEDS ORDERED: HYDROXYZINE PAMOATE 25 MG CAPSULE PO PRN (11:45)
[2018-08-13] MEDS ORDERED: ONDANSETRON ODT 4 MG TAB.RAPDIS SL PRN (11:45)
[2018-08-13] MEDS ORDERED: METHOCARBAMOL 750 MG TABLET PO PRN (11:45)
[2018-08-13] MEDS ORDERED: IBUPROFEN 600 MG TABLET PO PRN (11:45)
[2018-08-13] MEDS ORDERED: LOPERAMIDE HCL 2 MG CAPSULE PO PRN ×2 (11:45)
[2018-08-13] MEDS ORDERED: MAG HYDROX/AL HYDROX/SIMETH 30 ML LIQUID UDC PO PRN (11:45)
[2018-08-13] MEDS ORDERED: MAGNESIUM HYDROXIDE 30 ML LIQUID UDC PO PRN (11:45)
[2018-08-13] MEDS: MULTIVITAMINS,THERAPEUTIC TABLET PO SCH (12:10)
[2018-08-13] MEDS: DICYCLOMINE HCL 20 MG TABLET PO PRN ×2 (12:10→21:32)
[2018-08-13] MEDS: BUPRENORPHINE HCL 2 MG TAB.SUBL SL PRN ×3 (12:10→21:33)
[2018-08-13] MEDS: DIAZEPAM 5 MG TABLET PO PRN ×2 (12:15→16:21)
[2018-08-13] MEDS: FOLIC ACID 1 MG TABLET PO SCH (12:16)
[2018-08-13] MEDS ORDERED: SERT50TA PO (12:22)
[2018-08-13] MEDS ORDERED: LEVA15HF5 IH (12:22)
[2018-08-13] MEDS ORDERED: BUPR-51 PO (12:22)
[2018-08-13] MEDS ORDERED: DEXTROSE 4 GM TAB.CHEW PO PRN (13:30)
[2018-08-13] MEDS ORDERED: GLUCOSE ORAL GEL 15 GM TUBE PO PRN (14:30)
[2018-08-13 15:28] LABS: *AMPHETAMINE, URINE NEGATIVE (NEGATIVE); *BARBITURATE, URINE NEGATIVE (NEGATIVE); *CANNABINOID, URINE NEGATIVE (NEGATIVE); *COCCAINE, URINE POSITIVE (NEGATIVE); *OPIATE, URINE POSITIVE (NEGATIVE); *PHENCYCLIDINE SCREEN,URINE NEGATIVE (NEGATIVE)
[2018-08-13 16:00] VITALS: BP 136/79
[2018-08-13 16:15] LABS: BASOPHILS % (AUTO) 1.2 % (0.0-2.0); EOSINOPHILS # (AUTO) 0.2 K/uL (0.0-0.7); EOSINOPHILS % (AUTO) 4.8 % (0.0-7.0); HEMATOCRIT 37.7 % (36.7-47.1); HEMOGLOBIN 12.8 g/dL (12.5-16.3); LYMPHOCYTES # (AUTO) 1.4 K/uL (20.0-40.0); MEAN CORPUSCULAR HEMOGLOBIN 31.1 uug (23.8-33.4); MEAN CORPUSCULAR HGB CONC 34 g/dL (32.5-36.3); MEAN CORPUSCULAR VOLUME 91.8 fL (73.0-96.2); MONOCYTES # (AUTO) 0.4 K/uL (2.0-10.0); MONOCYTES % (AUTO) 11.4 % (0.0-11.0); NEUTROPHILS # (AUTO) 1.7 K/uL (1.8-8.9); NEUTROPHILS % (AUTO) 44.6 % (38.5-71.5); PLATELET COUNT (AUTO) 191 K/uL (152-348); WHITE BLOOD COUNT (AUTO) 3.8 K/uL (3.6-10.2)
[2018-08-13 16:34] LABS: ALANINE AMINOTRANSFERASE 18 U/L (16-63); ALKALINE PHOSPHATASE 114 U/L (50-136); AMYLASE 138 U/L (25-115); ASPARTATE AMINOTRANSFERASE 15 U/L (15-37); BILIRUBIN,TOTAL 0.4 mg/dL (0.2-1.0); CARBON DIOXIDE 28 mmol/L (21-32); CHLORIDE 97 mmol/L (98-107); GLUCOSE 150 mg/dL (74-106); LIPASE 434 U/L (73-393); MAGNESIUM 2.1 mg/dL (1.8-2.4); POTASSIUM 4.5 mmol/L (3.5-5.1); TOTAL PROTEIN, SERUM 7.6 g/dL (6.4-8.2); UREA NITROGEN, BLOOD 33 mg/dL (7-18)
[2018-08-13 16:39] LABS: ETHANOL < 3 MG/DL (0-0)
[2018-08-13 16:45] LABS: THYROID STIMULATING HORMONE 0.226 mIU/mL (0.358-3.740)
[2018-08-13] MEDS: BLOOD SUGAR DIAGNOSTIC 1 EACH STRIP VI SCH ×2 (17:13→21:23)
[2018-08-13 20:00] VITALS: BP 148/89
[2018-08-13] MEDS: diphenhydrAMINE 50 MG CAPSULE PO PRN (21:23)
[2018-08-13] MEDS: CLONIDINE HCL 0.1 MG TABLET PO PRN (21:23)
[2018-08-14 05:06] LABS: HEPATITIS B SURFACE AG Negative (Negative)
[2018-08-14] MEDS: BLOOD SUGAR DIAGNOSTIC 1 EACH STRIP VI SCH ×4 (07:03→20:58)
[2018-08-14 08:00] VITALS: BP 187/110
[2018-08-14] MEDS: CLONIDINE HCL 0.1 MG TABLET PO PRN ×2 (08:01→22:25)
[2018-08-14] MEDS: THIAMINE HCL 100 MG TABLET PO SCH (08:01)
[2018-08-14] MEDS: FOLIC ACID 1 MG TABLET PO SCH (08:01)
[2018-08-14] MEDS: MULTIVITAMINS,THERAPEUTIC TABLET PO SCH (08:01)
[2018-08-14] MEDS: BUPRENORPHINE HCL 2 MG TAB.SUBL SL SCH ×3 (08:01→20:49)
[2018-08-14] MEDS: DIAZEPAM 5 MG TABLET PO SCH ×4 (08:06→21:00)
[2018-08-14] MEDS ORDERED: 4 DAY TAPER BUPRENORPHINE -SERENITY PROTOCOL SL PRN (09:00)
[2018-08-14] MEDS ORDERED: TUBERCULIN,PURIF.PROT.DERIV. 5 TU/0.1 ML TEST ID ONE (09:00)
[2018-08-14] MEDS ORDERED: 4 DAY TAPER VALIUM-SERENITY PROTOCOL PO PRN (09:00)
[2018-08-14 12:00] VITALS: BP 140/82
[2018-08-14] MEDS ORDERED: VERAPAMIL HCL 240 MG PO SCH (12:00)
[2018-08-14] MEDS ORDERED: Medication Not On Formulary EA (Losartan Potassium 1 TAB) PO SCH (12:00)
[2018-08-14] MEDS: CLONIDINE HCL 0.2 MG TABLET PO SCH (12:22)
[2018-08-14] MEDS: ASPIRIN 81 MG TAB.CHEW PO SCH (12:22)
[2018-08-14] MEDS: LOSARTAN POTASSIUM 50 MG TABLET PO SCH (12:52)
[2018-08-14] MEDS: VERAPAMIL SR 120 MG TABLET.SA PO SCH (12:52)
[2018-08-14 13:11] LABS: BILIRUBIN,TOTAL 0.3 mg/dL (0.2-1.0); CREATININE 1.7 mg/dL (0.6-1.3); POTASSIUM 4.4 mmol/L (3.5-5.1); TOTAL PROTEIN, SERUM 8.2 g/dL (6.4-8.2)
[2018-08-14 16:00] VITALS: BP 111/71
[2018-08-14 20:00] VITALS: BP 136/84
[2018-08-14] MEDS: diphenhydrAMINE 50 MG CAPSULE PO PRN (22:24)
[2018-08-15] MEDS: BLOOD SUGAR DIAGNOSTIC 1 EACH STRIP VI SCH ×4 (07:54→21:22)
[2018-08-15 08:00] VITALS: BP 188/93
[2018-08-15] MEDS: DIAZEPAM 5 MG TABLET PO SCH ×3 (08:40→21:14)
[2018-08-15] MEDS: SERTRALINE HCL 50 MG TABLET PO SCH (08:40)
[2018-08-15] MEDS: FOLIC ACID 1 MG TABLET PO SCH (08:40)
[2018-08-15] MEDS: ASPIRIN 81 MG TAB.CHEW PO SCH (08:40)
[2018-08-15] MEDS: THIAMINE HCL 100 MG TABLET PO SCH (08:40)
[2018-08-15] MEDS: LOSARTAN POTASSIUM 50 MG TABLET PO SCH (08:41)
[2018-08-15] MEDS: MULTIVITAMINS,THERAPEUTIC TABLET PO SCH (08:41)
[2018-08-15] MEDS: VERAPAMIL SR 120 MG TABLET.SA PO SCH (08:41)
[2018-08-15] MEDS: CLONIDINE HCL 0.2 MG TABLET PO SCH (08:41)
[2018-08-15] MEDS: buPROPion XL 150 MG TAB.SR.24H PO SCH (08:41)
[2018-08-15] MEDS ORDERED: BUPRENORPHINE HCL 2 MG TAB.SUBL SL SCH (09:00)
[2018-08-15 12:00] VITALS: BP 137/79
[2018-08-15] MEDS: BUPRENORPHINE HCL 2 MG TAB.SUBL SL SCH ×2 (14:20→21:14)
[2018-08-15 16:00] VITALS: BP 136/97
[2018-08-15] MEDS: CLONIDINE HCL 0.1 MG TABLET PO PRN (19:42)
[2018-08-15 20:00] VITALS: BP 174/98
[2018-08-15] MEDS: diphenhydrAMINE 50 MG CAPSULE PO PRN (21:14)
[2018-08-16] MEDS: BLOOD SUGAR DIAGNOSTIC 1 EACH STRIP VI SCH ×4 (06:50→21:23)
[2018-08-16 07:48] LABS: BILIRUBIN,TOTAL 0.3 mg/dL (0.2-1.0); CREATININE 1.1 mg/dL (0.6-1.3); MAGNESIUM 1.9 mg/dL (1.8-2.4); POTASSIUM 4.3 mmol/L (3.5-5.1); TOTAL PROTEIN, SERUM 7.5 g/dL (6.4-8.2)
[2018-08-16 08:00] VITALS: BP 188/79
[2018-08-16] MEDS: buPROPion XL 150 MG TAB.SR.24H PO SCH (08:38)
[2018-08-16] MEDS: SERTRALINE HCL 50 MG TABLET PO SCH (08:38)
[2018-08-16] MEDS: BUPRENORPHINE HCL 2 MG TAB.SUBL SL SCH ×3 (08:38→20:26)
[2018-08-16] MEDS: THIAMINE HCL 100 MG TABLET PO SCH (08:38)
[2018-08-16] MEDS: MULTIVITAMINS,THERAPEUTIC TABLET PO SCH (08:38)
[2018-08-16] MEDS: DIAZEPAM 5 MG TABLET PO SCH ×2 (08:39→20:26)
[2018-08-16] MEDS: FOLIC ACID 1 MG TABLET PO SCH (08:39)
[2018-08-16] MEDS: VERAPAMIL SR 120 MG TABLET.SA PO SCH (08:39)
[2018-08-16] MEDS: CLONIDINE HCL 0.2 MG TABLET PO SCH (08:40)
[2018-08-16] MEDS: ASPIRIN 81 MG TAB.CHEW PO SCH (08:40)
[2018-08-16] MEDS: LOSARTAN POTASSIUM 50 MG TABLET PO SCH (08:40)
[2018-08-16 12:00] VITALS: BP 128/86
[2018-08-16 16:00] VITALS: BP 138/84
[2018-08-16 20:00] VITALS: BP 166/102
[2018-08-16] MEDS: CLONIDINE HCL 0.1 MG TABLET PO PRN (20:27)
[2018-08-16] MEDS: diphenhydrAMINE 50 MG CAPSULE PO PRN (21:24)
[2018-08-17] MEDS: BLOOD SUGAR DIAGNOSTIC 1 EACH STRIP VI SCH ×4 (07:56→20:54)
[2018-08-17 08:00] VITALS: BP 138/96
[2018-08-17] MEDS: VERAPAMIL SR 120 MG TABLET.SA PO SCH (08:51)
[2018-08-17] MEDS: CLONIDINE HCL 0.2 MG TABLET PO SCH (08:51)
[2018-08-17] MEDS: buPROPion XL 150 MG TAB.SR.24H PO SCH (08:52)
[2018-08-17] MEDS: LOSARTAN POTASSIUM 50 MG TABLET PO SCH (08:52)
[2018-08-17] MEDS: FOLIC ACID 1 MG TABLET PO SCH (08:52)
[2018-08-17] MEDS: MULTIVITAMINS,THERAPEUTIC TABLET PO SCH (08:52)
[2018-08-17] MEDS: ASPIRIN 81 MG TAB.CHEW PO SCH (08:52)
[2018-08-17] MEDS: THIAMINE HCL 100 MG TABLET PO SCH (08:52)
[2018-08-17] MEDS: SERTRALINE HCL 50 MG TABLET PO SCH (08:54)
[2018-08-17] MEDS ORDERED: BUPRENORPHINE HCL 2 MG TAB.SUBL SL SCH (09:00)
[2018-08-17] MEDS ORDERED: DIAZEPAM 5 MG TABLET PO SCH (09:00)
[2018-08-17 12:00] VITALS: BP 137/92
[2018-08-17] MEDS ORDERED: ASPI81TA31 PO (14:57)
[2018-08-17] MEDS ORDERED: SERT50TA PO (14:57)
[2018-08-17] MEDS ORDERED: CLON0.2T PO (14:57)
[2018-08-17] MEDS ORDERED: LOSA100T31 PO (14:57)
[2018-08-17] MEDS ORDERED: METH-406 PO (14:57)
[2018-08-17] MEDS ORDERED: BUPR-51 PO (14:57)
[2018-08-17] MEDS ORDERED: VERA240C2 PO (14:57)
[2018-08-17 16:30] VITALS: BP 191/112
[2018-08-17] MEDS: CLONIDINE HCL 0.1 MG TABLET PO PRN (16:35)
[2018-08-17 18:23] VITALS: BP 168/92
[2018-08-17 20:00] VITALS: BP 158/103
[2018-08-17] MEDS ORDERED: CLONIDINE HCL 0.1 MG TABLET PO ONE (21:00)
[2018-08-17] MEDS: diphenhydrAMINE 50 MG CAPSULE PO PRN (21:19)
[2018-08-17 22:00] VITALS: BP 151/89
[2018-08-18 08:00] VITALS: BP 140/100
[2018-08-18] MEDS: buPROPion XL 150 MG TAB.SR.24H PO SCH (08:26)
[2018-08-18] MEDS: FOLIC ACID 1 MG TABLET PO SCH (08:27)
[2018-08-18] MEDS: LOSARTAN POTASSIUM 50 MG TABLET PO SCH (08:27)
[2018-08-18] MEDS: ASPIRIN 81 MG TAB.CHEW PO SCH (08:27)
[2018-08-18] MEDS: CLONIDINE HCL 0.2 MG TABLET PO SCH (08:27)
[2018-08-18] MEDS: MULTIVITAMINS,THERAPEUTIC TABLET PO SCH (08:27)
[2018-08-18] MEDS: SERTRALINE HCL 50 MG TABLET PO SCH (08:28)
[2018-08-18] MEDS: BLOOD SUGAR DIAGNOSTIC 1 EACH STRIP VI SCH (08:30)
[2018-08-18] MEDS: THIAMINE HCL 100 MG TABLET PO SCH (08:37)
[2018-08-18 08:44] VITALS: BP 140/100
[2018-08-18] MEDS: VERAPAMIL SR 120 MG TABLET.SA PO SCH (08:44)
== END 2018-08-18 09:37 | DRG 895 ==
LOC: SRC 11:09
PROVIDERS: ADMIT Family Medicine Addiction Medicine; ATTEND Family Medicine Addiction Medicine
PROC: HZ2ZZZZ Detoxification Services for Substance Abuse Treatment (ICD-10-PCS; principal; 2018-08-13)
PROC: HZ31ZZZ Individual Counseling for Substance Abuse Treatment, Behavioral (ICD-10-PCS; 2018-08-14)
PROC: HZ41ZZZ Group Counseling for Substance Abuse Treatment, Behavioral (ICD-10-PCS; 2018-08-15)
DX: F10.230 Alcohol dependence with withdrawal, uncomplicated (principal); F33.1 Major depressive disorder, recurrent, moderate; F11.23 Opioid dependence with withdrawal; Y90.0 Blood alcohol level of less than 20 mg/100 ml; Z90.49 Acquired absence of other specified parts of digestive tract; F17.210 Nicotine dependence, cigarettes, uncomplicated; Z81.1 Family history of alcohol abuse and dependence; Z79.82 Long term (current) use of aspirin; Z79.899 Other long term (current) drug therapy; J44.9 Chronic obstructive pulmonary disease, unspecified; N20.0 Calculus of kidney; I10 Essential (primary) hypertension; F41.9 Anxiety disorder, unspecified; R74.8 Abnormal levels of other serum enzymes; R10.12 Left upper quadrant pain; B18.2 Chronic viral hepatitis C; F14.10 Cocaine abuse, uncomplicated; E11.9 Type 2 diabetes mellitus without complications; Z79.84 Long term (current) use of oral hypoglycemic drugs
CPT/HCPCS: 36415; 70030-TC; 76700; 80307; 80353; 80361; 83690; 83735; 84443; 85025; 86592; 86705; 86803; 87340; 87806; A4663; G0480; J3411; Q0163